=== PATIENT | female | born 1935 | race Caucasian/White ===

== ENCOUNTER → 2018-01-02 | Outpatient (CLI) | payer OTHER ==
[~2018-01-02] MED LIST: ESTR0.3T PO; HYDR25TA4 PO; METO-158 PO; ROSU10TA16 PO; VERA1TAB9 PO
[2018-01-02 09:58] LABS: Basophils # (auto) 0 uL; Hemoglobin 7.9 g/dL (12.2-16.2)
[2018-01-02 10:00] LABS: Basophils % (auto) 0.4 % (0.0-2.0); Eosinophils # (auto) 0.5 uL; Eosinophils % (auto) 5.7 % (0.0-7.0); Hematocrit 24.3 % (36.0-46.0); Lymphocytes # (auto) 0.9 uL; Lymphocytes % (auto) 9.9 % (10.0-50.0); Mean Corpuscular Hemoglobin 23.8 pg (28.0-32.0); Mean Corpuscular Hgb Conc. 32.5 g/dL (32.0-36.0); Mean Corpuscular Volume 73.2 fL (80.0-100.0); Monocytes # (auto) 0.8 uL; Monocytes % (auto) 8.1 % (0.0-12.0); Neutrophils # (auto) 7.2 uL; Neutrophils % (auto) 75.9 % (37.0-80.0); Platelet Count (auto) 695 10^3/uL (140-450); Red Blood Cells 3.33 10^6/uL (4.0-5.20); Red Cell Distribution Width 17.4 % (11.8-14.3); White Blood Cell 9.6 10^3/uL (4.4-10.8)
[2018-01-02 10:18] LABS: Urine Bacteria MANY /hpf (None Seen); Urine Blood 2+ /uL (Negative); Urine WBC 4566 /hpf (0 - 5)
[2018-01-02 10:22] LABS: Urine Specific Gravity 1.011 (1.001-1.035)
[2018-01-02 10:38] LABS: Albumin 2.5 g/dL (3.4-5.0); BUN/Creatinine Ratio 26.4; Bilirubin, Total 0.2 mg/dL (0.2-1.0); CRP High Sensitivity 9.32 mg/dL (< 0.3); Calcium 9.3 mg/dL (8.5-10.1); Potassium 4.6 mmol/L (3.5-5.1); Total Protein 6.4 g/dL (6.4-8.2)
== END | disposition home or self-care (01) ==
LOC: LAB 09:41
PROVIDERS: ATTEND Nurse Practitioner
DX: E78.5 Hyperlipidemia, unspecified (principal); E78.00 Pure hypercholesterolemia, unspecified
CPT/HCPCS: 36415; 80053; 80061; 81001; 85025; 85652; 86141

== ENCOUNTER 2018-10-14 15:24 | Inpatient (IN) | payer OTHER | END 2018-10-24 17:15 | disposition home or self-care (01) | LOC: TELE-WESTW 10-15 18:51 → ER 15:24 → TELE-WESTW 20:50 | DX: C50.919 Malignant neoplasm of unspecified site of unspecified female breast (principal); C79.51 Secondary malignant neoplasm of bone; C78.7 Secondary malignant neoplasm of liver and intrahepatic bile duct; C78.01 Secondary malignant neoplasm of right lung; L89.152 Pressure ulcer of sacral region, stage 2 ==